=== PATIENT | female | born 1960 | race African-American/Black ===

== ENCOUNTER 2021-09-21 12:38 | Emergency (ER) | payer OTHER ==
[~2021-09-21] VITALS: Ht 162.6 cm; Wt 71.7 kg
[2021-09-21 12:50] VITALS: BP 131/78
[2021-09-21] MEDS ORDERED: FLUORESCEIN SODIUM OPHTH 1 EA STRIP ONE (12:57)
[2021-09-21] MEDS ORDERED: FLUORESCEIN SODIUM OPHTH 1 EA STRIP OP ONE (13:00)
[2021-09-21] MEDS ORDERED: TETRACAINE HCL 2% OPHTHALIC 30 ML BOTTLE EACHEYE ONE (13:00)
[2021-09-21] MEDS ORDERED: CIPR5DRO RIGHTEYE (13:03)
--- NOTE | 2021-09-21 13:30 | NUR ---
Patient discharged to home in stable condition. RX Written and verbal after care instructions given. Patient verbalizes understanding of instruction. PT ambulatory with a steady gait
== END 2021-09-21 22:58 | disposition home or self-care (01) ==
LOC: ER 12:47
DX: S05.01XA Injury of conjunctiva and corneal abrasion without foreign body, right eye, initial encounter (principal); Z88.8 Allergy status to other drugs, medicaments and biological substances; Z91.040 Latex allergy status; W22.8XXA Striking against or struck by other objects, initial encounter; Y93.89 Activity, other specified; Y92.89 Other specified places as the place of occurrence of the external cause; Y99.0 Civilian activity done for income or pay

== ENCOUNTER → 2022-10-10 | Emergency (ER) | payer BC ==
[~2022-10-10] VITALS: Ht 165.1 cm; Wt 72.6 kg
[~2022-10-10] MED LIST: CIPR5DRO RIGHTEYE; LISI40TA13 PO
--- NOTE | 2022-10-10 11:25 | NUR ---
C/O HIGH BLOOD PRESSURE READ THIS MORNING, ANXIOUS C/O HEADACHE
--- NOTE | 2022-10-10 11:33 | NUR ---
AT BEDSIDE FOR EVAL
--- NOTE | 2022-10-10 11:55 | NUR ---
Patient discharged to home in stable condition. Written and verbal after care instructions given. Patient verbalizes understanding of instruction.
[2022-10-10 11:56] VITALS: BP 165/73
== END | disposition home or self-care (01) ==
LOC: ER 10:58
DX: I10 Essential (primary) hypertension (principal); R51.9 Headache, unspecified; E78.00 Pure hypercholesterolemia, unspecified; Z88.8 Allergy status to other drugs, medicaments and biological substances; Z79.899 Other long term (current) drug therapy

== ENCOUNTER 2025-10-31 01:03 | Emergency (ER) | payer BC ==
[~2025-10-31] VITALS: Ht 165.1 cm; Wt 70.3 kg
[2025-10-31 01:37] LABS: PLATELET COUNT (AUTO) 303 K/uL (150-450); RED BLOOD CELL COUNT(AUTO) 4.92 MIL/uL (4.0-5.2); RED CELL DISTRIBUTION WIDTH 14.3 % (11.5-15.0); WHITE BLOOD COUNT (AUTO) 11.3 K/uL (4.3-11.0)
[2025-10-31 01:46] LABS: CALCIUM, SERUM 9.5 mg/dL (8.5-10.1); CREATININE 0.7 mg/dL (0.6-1.3); SODIUM SERUM 145 mmol/L (136-145); UREA NITROGEN, BLOOD 16 mg/dL (7-18)
[2025-10-31 01:52] LABS: ASPARTATE AMINOTRANSFERASE 15 U/L (15-37); TOTAL PROTEIN, SERUM 7.7 g/dL (6.4-8.2)
[2025-10-31] MEDS: POTASSIUM CHLORIDE 20 MEQ TAB.PRT.SR PO ONE (02:10)
[2025-10-31 04:18] VITALS: BP 133/82; TEMP 98.6; O2SAT 98
== END 2025-10-31 04:18 | disposition home or self-care (01) ==
LOC: ER 01:06
DX: R07.89 Other chest pain (principal); I11.9 Hypertensive heart disease without heart failure; E78.00 Pure hypercholesterolemia, unspecified; Z79.899 Other long term (current) drug therapy; Z88.2 Allergy status to sulfonamides; Z91.040 Latex allergy status
CPT/HCPCS: 36415; 71045-TC; 80053-TC; 83690-TC; 83735-TC; 84484-TC; 85025-TC; 86140-TC